=== PATIENT | female | born 1995 | race Two or more races ===

== ENCOUNTER 2022-03-06 13:53 | Emergency (ER) | payer MEDICAID, OTHER ==
[~2022-03-06] VITALS: Ht 121.9 cm; Wt 62.3 kg
[~2022-03-06 13:53] MED LIST: ALBUPOW26; PULMACORT
[2022-03-06] MEDS ORDERED: ONDANSETRON HCL 4 MG/2 ML VIAL IV ONE (15:30)
[2022-03-06] MEDS ORDERED: MORPHINE SULFATE 4 MG/ML SYR/VIAL IV ONE (15:30)
[2022-03-06 18:00] LABS: Albumin 4.1 g/dL (3.4-5.0); Potassium 4.5 mmol/L (3.5-5.1)
[2022-03-06 18:03] LABS: Bilirubin, Total 0.3 mg/dL (0.2-1.0); Total Protein 8.2 g/dL (6.4-8.2)
[2022-03-06 18:12] LABS: Basophils # (auto) 0 10 ^3/uL (0-0.2); Basophils % (auto) 0.2 % (0.0-2.0); Eosinophils # (auto) 0 10 ^3/uL (0-0.8); Lymphocytes # (auto) 0.8 10 ^3/uL (0.4-5.4); White Blood Cell 13.1 10^3/uL (4.4-10.8)
[2022-03-06 18:14] LABS: Hematocrit 40.9 % (36.0-46.0); Hemoglobin 12.7 g/dL (12.2-16.2); Lymphocytes % (auto) 6.1 % (10.0-50.0); Mean Corpuscular Hemoglobin 26.3 pg (28.0-32.0); Mean Corpuscular Hgb Conc. 30.9 g/dL (32.0-36.0); Monocytes # (auto) 0.9 10 ^3/uL (0-1.3); Monocytes % (auto) 7.2 % (0.0-12.0); Neutrophils # (auto) 11.3 10 ^3/uL (1.6-8.6); Neutrophils % (auto) 86.5 % (37.0-80.0); Red Blood Cells 4.82 10^6/uL (4.0-5.20); Red Cell Distribution Width 17.7 % (11.8-14.3)
[2022-03-06 21:38] LABS: Urine Bacteria FEW /hpf (None Seen); Urine Blood Negative /uL (Negative); Urine Mucus FEW (None Seen); Urine Specific Gravity 1.014 (1.001-1.035); Urine WBC 5 /hpf (0 - 5)
[2022-03-06] MEDS ORDERED: NITR-87 PO (23:16)
[2022-03-06] MEDS ORDERED: NITROFURANTOIN 100 mg CAP PO ONE (23:30)
[2022-03-07] MEDS ORDERED: MORPHINE SULFATE INJ 2 MG/ml SYRG IV ONE
[2022-03-07 00:04] VITALS: BP 116/61
== END 2022-03-07 00:39 | disposition home or self-care (01) ==
LOC: EDBD 13:53 → ER 13:53
DX: M54.50 Low back pain, unspecified (principal); N39.0 Urinary tract infection, site not specified; R94.31 Abnormal electrocardiogram [ECG] [EKG]
CPT/HCPCS: 36415; 70450; 74176; 80053; 81001; 83690; 85025; 93005; 96374; 96375; 96376; 99285; J2270; J2405